=== PATIENT | male | born 1965 | race Caucasian/White ===

== ENCOUNTER 2017-12-06 20:49 | Emergency (ER) | payer BC, OTHER ==
[~2017-12-06] VITALS: Ht 170.2 cm; Wt 81.0 kg
[2017-12-06 21:15] VITALS: BP 134/89; PULSE 97; RESP 18; TEMP 97.8; O2SAT 98
--- NOTE | 2017-12-06 22:06 | PD ---
HPI Chief Complaint: Hypertension Time Seen by Provider: 21:56 Travel History International Travel<30 days: No Contact w/Intl Traveler<30days: No Traveled to known affect area: No History of Present Illness HPI 51-year-old male with history of ADHD on Ritalin here for evaluation as of an elevated blood pressure reading while at home. The patient reports that his blood pressures usually normal. Recently his systolic pressure has been around 140 and he changed his diet and started exercising and it has run around 120s. Tonight when he checked his blood pressure was 170/100. He felt slightly short of breath. No chest pain. No paresthesias or motor deficits. Triage blood pressure shows 136/84. Patient is asymptomatic. PFSH Past Medical History Diminished Hearing: No Gastrointestinal Disorders: Yes (CELIAC DISEASE) Medical other: Yes Past Surgical History Other Surgery: Yes (HEMERRHOIDECTOMY) Social History Alcohol Use: No Tobacco Use: Yes (10 CIGARS DAILY) Substance Use: No Allergies-Medications (Allergen,Severity, Reaction): Coded Allergies: Rodriguez Meat (Verified Allergy, Unknown, CELIAC DISEASE, 12/06/17) Yeast (Verified Adverse Reaction, Unknown, CELIAC DISEASE, 12/06/17) barley (Verified Adverse Reaction, Unknown, CELIAC DISEASE, 12/06/17) orange juice (Verified Adverse Reaction, Unknown, CELIAC DISEASE, 12/06/17) pork derived (porcine) (Verified Adverse Reaction, Unknown, CELIAC DISEASE , 12/06/17) Uncoded Allergies: OATMEAL (Adverse Reaction, Unknown, CELIAC DISEASE, 12/06/17) Review of Systems Except as stated in HPI: all other systems reviewed are Neg Physical Exam Narrative GENERAL: Well-developed, well-nourished, comfortable, no apparent distress. SKIN: Focused skin assessment warm/dry. HEAD: Atraumatic. Normocephalic. EYES: Pupils equal and round. Bilateral optic discs and retina are within normal limits. No scleral icterus. No injection or drainage. ENT: Mucous membranes pink and moist. NECK: Trachea midline. No JVD. CARDIOVASCULAR: Regular rate and rhythm. No murmur appreciated. RESPIRATORY: No accessory muscle use. Clear to auscultation. Breath sounds equal bilaterally. GASTROINTESTINAL: Abdomen soft, non-tender, nondistended. Hepatic and splenic margins not palpable. MUSCULOSKELETAL: No obvious deformities. No clubbing. No cyanosis. No edema. NEUROLOGICAL: Awake and alert. No obvious cranial nerve deficits. Motor grossly within normal limits. Normal speech. PSYCHIATRIC: Appropriate mood and affect; insight and judgment normal. Data Data Last Documented VS Vital Signs Date Time Temp Pulse Resp B/P (MAP) Pulse Ox O2 Delivery O2 Flow Rate FiO2 12/06/17 21:15 97.8 97 18 134/89 (104) 98 MDM Medical Decision Making Medical Screen Exam Complete: Yes Emergency Medical Condition: Yes Differential Diagnosis Elevated blood pressure reading, essential hypertension, hypertensive crisis unlikely Narrative Course Triage vital signs show heart rate 97, blood pressure 134/89, pulse ox 98% on room air, oral temp of 97.8F. The patient is not displaying any signs or symptoms of hypertensive crisis. He is stable for discharge home with further outpatient follow-up with his [facility] care [facility]. He was advised on when to return to the emergency department. He verbalizes understanding and agreement with plan. Diagnosis Primary Impression: Elevated blood pressure reading Referrals: Primary Care Physician 2 days Additional Instructions: Follow-up with your primary care physician this week. Return to the emergency department for worsening symptoms or any other concerns. Disposition: 01 DISCHARGE HOME Condition: Stable Lexa Hilton MD Dec 06, 2017 22:05
== END 2017-12-06 22:37 | disposition home or self-care (01) ==
LOC: NEPE 20:49
DX: R03.0 Elevated blood-pressure reading, without diagnosis of hypertension (principal); F90.9 Attention-deficit hyperactivity disorder, unspecified type; F17.290 Nicotine dependence, other tobacco product, uncomplicated
CPT/HCPCS: 99281